=== PATIENT | male | born 1960 | race Caucasian/White ===

== ENCOUNTER 2022-05-04 13:10 | Emergency (ER) | payer SELFPAY ==
[2022-05-04 13:18] VITALS: BP 130/94; PULSE 79; RESP 16; TEMP 36.6; O2SAT 96; BMI 24.3
[2022-05-04 13:36] VITALS: BP 130/94; PULSE 79; RESP 16; TEMP 36.6; O2SAT 96
--- NOTE | 2022-05-04 13:54 | ED_ITS ---
HPI - Skin/Abscess/Foreign Bdy General: Chief complaint: Extremity Injury, Upper Stated complaint: Forearm swelling, both arms Time Seen by Provider: 05/04/22 13:29 Source: patient Mode of arrival: ambulatory Limitations: no limitations History of Present Illness: Patient is a 62-year-old male who presents to ED today with a complaint of skin lesions and swelling to his bilateral forearms. 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 He thinks that may be some of these lesions have gotten infected. He had began noticing small pustule like lesions and when he would scrape them they would then crust and scab. He feels like the tops of his forearms are tight and slightly warm to the touch. States lesions are not pruritic. He denies a history of staph. complaint: rash and lesion Onset (ago): day(s) Tetanus up to date: yes Location: LUE and RUE Severity: moderate Quality: aching Relieving factors: none Exacerbating factors: none Associated symptoms: Reports no associated symptoms; Deny chills, fever(s), nausea or vomiting Treatments prior to arrival: none Review of Systems Const: Denies: fever(s), chills, body aches, fatigue or malaise GI: Denies: abdominal pain, nausea, vomiting or diarrhea Musc: Reports: extremity pain (bilateral forearms) and extremity swelling; Denies: neck pain, back pain, joint pain or joint swelling Skin/Breast: Reports: new lesions Neuro: Denies: headache(s), numbness in extremities, weakness in extremities or sensory changes Physical Exam Const: COMMON NORMALS: no acute distress, patient oriented x3, no limitations, alert and well nourished Extremity: COMMON NORMALS: full ROM, capillary refill normal, no joint enlargement and no clubbing, cyanosis or edema GENERAL: Yes normal exam except as noted RIGHT UPPER EXTREMITY: Yes lower arm LEFT UPPER EXTREMITY: Yes lower arm OTHER: pt has multiple scabbed lesions to dorsal aspects of bilateral forearms; no obvious swelling noted; no erythema/cellulitis; possible slight warmth?; no streaking; there are no drainage from any of the wounds; it is clear patient has been picking at the lesions as several are small unroofed pustules; extremities NV intact; no lesions to hands/wrists/webbings Neuro: COMMON NORMALS: patient oriented x3, moves all extremities, no focal motor deficits and no sensory deficits noted SENSORIUM/ORIENTATION: Yes alert Skin: NARRATIVE SKIN EXAM: see extremity assessment above Course Vital Signs: Vital signs: Vital Signs Temperature 97.9 F 05/04/22 13:36 Pulse Rate 79 05/04/22 13:36 Respiratory Rate 16 05/04/22 13:36 Blood Pressure 130/94 05/04/22 13:36 Pulse Oximetry 96 05/04/22 13:36 Oxygen Delivery Me thod 05/04/22 13:36 MDM - Skin/Abscess/Foreign Bdy Medicial Decision Making Suspicion for staph lesions but could also be some form of contact dermatitis based on history (working on cars/vehicle fluids) but I would have a lower suspicion for this clinically as he has no lesions to hands or anywhere else besides bilateral forearms. Will place on Bactrim and recommend he follow up with PCP next week if lesions are not improving. Discharge Plan Discharge Patient Disposition: Home Clinical Impression: Rash of unknown etiology Condition: Stable Prescriptions: New Bactrim DS 800-160 mg tablet 1 tab PO BID 7 Days Qty: 14 0RF Discharge Orders: Discharge ED (Routine); Ordered 05/04/22 Ordered By: Tracie Silver Referrals: Simon Peña MD [Primary Care Provider] - Coding Level of Care Code ED Nuclear Technologist for Chg Fwd Exam Expanded Problem Focused
== END 2022-05-04 14:09 | disposition home or self-care (01) ==
PROVIDERS: Emergency Provider Physician Assistant; PCP Family Medicine
DX: R21 Rash and other nonspecific skin eruption (principal)
CPT/HCPCS: 99283

== ENCOUNTER 2023-05-31 21:40 | Emergency (ER) | payer SELFPAY ==
[2023-05-31 21:51] VITALS: BP 172/93; PULSE 62; RESP 22; TEMP 36.4; O2SAT 96; BMI 24.0
--- NOTE | 2023-05-31 22:13 | XRR_ITS ---
PROCEDURE INFORMATION: Exam: XR Right Elbow Exam date and time: 05/31/2023 10:33 PM Age: 63 years old Clinical indication: Injury or trauma; Other: Lumber fell on patient; Other: N/a TECHNIQUE: Imaging protocol: Radiologic exam of the right elbow. Views: 3 or more views. COMPARISON: No relevant prior studies available. FINDINGS: Bones/joints: Moderate severe osteoarthritis of the elbow. Soft tissues: Normal. XR/XR elbow RT min 3V* [id number] IMPRESSION: 1. Negative for fracture or dislocation. 2. Moderate severe osteoarthritis of the elbow.
--- NOTE | 2023-05-31 22:19 | ED_ITS ---
HPI - Extremity Problem General: Chief complaint: Extremity Injury, Upper Stated complaint: Rt Elbow Injury Time Seen by Provider: 05/31/23 21:59 History of Present Illness: Patient was moving a wheelbarrow down a ramp when it shifted on him causing him to strain to hold an upright position. When it shifted he felt a pop in his elbow. Since then patient has had pain and discomfort to the right elbow and difficulty with movement. Patient takes no routine medication except over-the- counter ibuprofen for arthritis pain. Patient has had prior surgeries to the elbow for injury and for other conditions. Review of Systems General: Reports: 10 or more systems reviewed and unremarkable except in HPI and below Musc: Reports: extremity pain and joint pain (Right elbow) Physical Exam Const: COMMON NORMALS: alert HENMT: COMMON NORMALS: normocephalic HEAD & SCALP: normocephalic Neck/C-Spine: COMMON NORMALS: full ROM Resp: COMMON NORMALS: normal respiratory effort Cardio: COMMON NORMALS: regular rate RATE: regular rate Back/Pelvis: COMMON NORMALS: thoracic and lumbar spine normal to inspection Extremity: RIGHT UPPER EXTREMITY: Yes elbow joint (Decreased range of motion, tenderness to palpation) Neuro: SENSORIUM/ORIENTATION: Yes alert Skin: COMMON NORMALS: turgor normal GENERAL SKIN EXAM: turgor normal Course Vital Signs: Vital signs: Vital Signs Temperature 97.6 F 05/31/23 21:51 Pulse Rate 62 05/31/23 21:51 Respiratory Rate 22 H 05/31/23 21:51 Blood Pressure 172/93 05/31/23 21:51 Pulse Oximetry 96 05/31/23 21:51 MDM - Extremity (Nontraumatic) Medical Decision Making 63-year-old male patient comes in today for complaints of injury to his right elbow. On exam patient has decreased range of motion due to pain. Distal pulses and sensation are intact. Rotation of the wrist elicits pain. Patient does have noticeable joint enlargement in the hands bilaterally worse on the right than the left. Patient also has scars to the right elbow from prior procedures. Differential diagnosis includes dislocation, sprain, fracture, tendinopathy. X-ray of the elbow noted no fracture or dislocation. Reviewed exam with patient recommended activity as tolerated. Recommended patient follow-up with orthopedist for further evaluation and treatment. Recommend return to the ER for new concerns. XR interpretation done by ED provider, pending radiology final review Discharge Plan Discharge Patient Disposition: Home Clinical Impression: Sprain and strain of unspecified site of elbow and forearm Condition: Stable Prescriptions: New ibuprofen 800 mg tablet 800 mg PO Q6H PRN (Reason: pain) Qty: 40 0RF hydrocodone-acetaminophen 7.5-325 mg tablet 1 tab PO Q8H PRN (Reason: pain (scale score 7-10)) Qty: 9 0RF Discharge Orders: Discharge ED (Routine); Ordered 05/31/23 Ordered By: Huber Shi Discharge Diet: Usual diet Discharge Activity: Increase activity as tolerated Patient Instructions: Elbow Sprain (ED) Activity Restrictions/Additional Instructions: Increase activity as tolerated. Gentle stretching and range of motion exercises. Use ibuprofen as needed for pain and inflammation. Use hydrocodone for severe pain. Use ice or heat for further pain relief. Follow-up with primary care as needed. Follow-up with your graves registration specialist for further evaluation and treatment. Return to ER for new concerns. Coding Level of Care Code ED Head Sampler for Kalen Martin
[2023-05-31] MEDS: HYDROcodone-acetaminophen 10-325 mg Tablet 1 TAB PO (22:26)
--- NOTE | 2023-06-02 08:21 | PC.SOCIAL ---
Ortho Referral Referral message sent to clinic at this time. Clinic to contact patient with appt date/time.
== END 2023-05-31 22:59 | disposition home or self-care (01) ==
PROVIDERS: Emergency Provider Nurse Practitioner Family
DX: S53.401A Unspecified sprain of right elbow, initial encounter (principal); S46.911A Strain of unspecified muscle, fascia and tendon at shoulder and upper arm level, right arm, initial encounter; X50.0XXA Overexertion from strenuous movement or load, initial encounter
CPT/HCPCS: 73080; 99283

== ENCOUNTER 2024-08-26 08:25 | Emergency (ER) | payer MEDICARE, SELFPAY ==
[2024-08-26 08:32] VITALS: BP 167/89; PULSE 75; RESP 20; TEMP 36.6; O2SAT 99
--- NOTE | 2024-08-26 09:06 | ED_ITS ---
HPI - Ear Problem General: Chief complaint: Ear Stated complaint: Ear and Throat pain Time Seen by Provider: 08/26/24 08:38 History of Present Illness: 64-year-old male presents emergency room planing of bilateral ear pain crackling sore throat nonproductive cough. No fever no vomiting no diarrhea. Patient is a half pack-a-day smoker for the last 50+ years. Denies any rash. No abdominal or chest pain. He states his cough is somewhat increased from his typical baseline. Associated symptoms: Denies fever(s) or neck pain Related Data Home Medications Medication Instructions Recorded Confirmed ibuprofen 200 mg tablet (Advil) 200 mg PO Q6H PRN Pain 08/26/24 08/26/24 Previous Rx's Medication Instructions Recorded albuterol sulfate 90 mcg/actuation 2 inh inhalation Q4H PRN shortness 08/26/24 aerosol inhaler of breath or wheezing #18 grams prednisone 20 mg tablet 20 mg PO TID #15 tabs 08/26/24 Allergies Allergy/AdvReac Type Severity Reaction Status Date / Time No Known Allergies Allergy Verified 05/31/23 21:59 Review of Systems Const: Denies: fever(s) or chills Card: Denies: chest pain Resp: Denies: dyspnea GI: Denies: abdominal pain : Denies: dysuria, urinary frequency or urinary urgency Musc: Denies: neck pain or back pain Skin/Breast: Denies: rash Physical Exam Const: COMMON NORMALS: no acute distress GENERAL APPEARANCE: cooperative and comfortable ORIENTATION/CONSCIOUSNESS: Yes awake, Yes oriented to person, Yes oriented to place and Yes oriented to time HENMT: COMMON NORMALS: normocephalic, atraumatic and hearing grossly normal bilaterally HEAD & SCALP: normocephalic and atraumatic Resp: COMMON NORMALS: normal respiratory effort, No retractions, No use of accessory muscles and clear to auscultation bilaterally AUSCULTATION: clear to auscultation bilaterally Cardio: COMMON NORMALS: regular rate, regular rhythm and No murmurs present (Cardio) RATE: regular rate RHYTHM: regular rhythm Extremity: COMMON NORMALS: normal to inspection, capillary refill normal, no clubbing, cyanosis or edema, no calf tenderness and no pedal edema Neuro: SENSORIUM/ORIENTATION: Yes oriented to person, Yes oriented to place and Yes oriented to time Skin: COMMON NORMALS: no rashes or lesions noted GENERAL SKIN EXAM: no ra shes or lesions noted Course Vital Signs: Vital signs: Vital Signs Temperature 97.8 F 08/26/24 08:32 Pulse Rate 75 08/26/24 08:32 Respiratory Rate 20 H 08/26/24 08:32 Blood Pressure 167/89 08/26/24 08:32 Pulse Oximetry 99 08/26/24 08:32 Oxygen Delivery Me thod Room Air 08/26/24 08:32 MDM - Ear Medical Decision Making Viral respiratory infection mild exacerbation COPD started on a steroid taper and albuterol follow-up as needed. No radiology studies performed this visit Discharge Plan Discharge Patient Disposition: Home Clinical Impression: Viral URI with cough, COPD with acute exacerbation Condition: Stable Prescriptions: New prednisone 20 mg tablet 20 mg PO TID Qty: 15 0RF Rx Instructions: 1 p.o. 3 times daily x3 days, 1 p.o. twice daily x2 days, 1 p.o. daily x2 days albuterol sulfate 90 mcg/actuation HFA aerosol inhaler 2 inh INHALATION Q4H PRN (Reason: shortness of breath or wheezing) Qty: 18 0RF No Action ibuprofen [Advil] 200 mg Tablet 200 mg PO Q6H PRN (Reason: Pain) Discharge Orders: Discharge ED (Routine); Ordered 08/26/24 Ordered By: lKaus Romero Patient Instructions: Opioid Safety, Pain Management Activity Restrictions/Additional Instructions: Thank you for choosing [facility] for your healthcare needs today. It is very important that you follow up as instructed or that you return to the Emergency Department should you have concerns or if your condition changes or worsens in any way. You were seen in the emergency room with complaints of upper respiratory symptoms. Ear exam did not show any definitive findings. Based on your history of your symptoms you likely have a viral upper respiratory infection. This is probably exacerbated by underlying COPD from years of smoking. Recommend albuterol inhaler along with a steroid taper that you can begin today follow-up with your primary care doctor if not improving Coding Level of Care Code ED Digital Program Manager for Kalen Martin
[2024-08-26 10:12] VITALS: BP 147/83; PULSE 58; O2SAT 99
== END 2024-08-26 10:13 | disposition home or self-care (01) ==
PROVIDERS: Emergency Provider Family Medicine
DX: J06.9 Acute upper respiratory infection, unspecified (principal); J44.1 Chronic obstructive pulmonary disease with (acute) exacerbation
CPT/HCPCS: 99283

== ENCOUNTER 2024-12-29 11:59 | Observation (INO) | payer MEDICARE, SELFPAY ==
[2024-12-29] VITALS (18 sets, daily range): BP systolic 100–141; BP diastolic 59–98; PULSE 50–80; RESP 10–18; TEMP 36.4–36.5; O2SAT 94–100
--- NOTE | 2024-12-29 12:11 | ECG_ITS ---
[facility]: 2024-12-29 Pat Name: Tonio Fallon Department: Room: Gender: Male Senior Information Security Architect: : 1960 Requested By: Ayana Houser Order Number: [id number] Sahil MD: Edda Boothe M.D. Measurements Intervals Jackson Rate: 53 P: 148 VA: 146 QRS: 145 QRSD: 104 T: 139 QT: 476 QTc: 450 Interpretive Statements ECTOPIC ATRIAL BRADYCARDIA RIGHT AXIS DEVIATION [QRS AXIS > 100] POSSIBLE LEFT VENTRICULAR HYPERTROPHY [VOLTAGE CRITERIA PLUS LAE OR QRS WIDENING] Compared to ECG 08/09/2018 18:34:52 Bradycardia, nonsinus now present Right-axis deviation now present Sinus rhythm no longer present Electronically Signed On 12-29-2024 21:20:27 CDT by Edda Boothe M.D. [email or web address]
--- NOTE | 2024-12-29 12:19 | XR_ITS ---
WS: [id number] Portable AP upright chest, 12/29/2024 Clinical Data: Weakness Comparison: Portable chest, 11/10/2017 Findings: No nodules, masses or effusions are seen. The heart is normal. The pulmonary vascularity is not increased. No pneumonia or pneumothorax is seen. The aortic arch and descending thoracic aorta shows tortuosity. There are monitor leads on the chest wall. XR/XR chest 1V portable [id number] Impression: Atherosclerosis.
--- NOTE | 2024-12-29 12:49 | CT_ITS ---
WS: [id number] CT HEAD NONCONTRAST HISTORY: Encephalopathy, altered mental status TECHNIQUE: Contiguous axial imaging performed through the brain. Bone and soft tissue windows. Sagittal and coronal reformats reviewed. All CT scans at [facility] use at least one of these dose optimization techniques: automated exposure control; mA and/or kV adjustment per patient size (includes targeted exams where dose is matched to clinical indication); or iterative reconstruction. DLP: 1008.38 mGy.cm COMPARISON: 08/09/2018 No acute intracranial hemorrhage, midline shift or mass effect. Mild atrophy and mild small vessel ischemic changes. There is been mild progression of low-attenuation periventricular white matter disease. No infarct. Ventricles: Normal size with no hydrocephalus. No inferior displacement the cerebellar tonsils. Paranasal sinuses: Moderate mucoperiosteal thickening throughout the ethmoid air cells. Small amount of mucoperiosteal thickening in the frontal and sphenoid sinuses. Mastoid air cells: Well pneumatized. Calvarium and scalp: Skull is intact with no soft tissue edema or swelling. CT/CT head wo con* [id number] IMPRESSION: 1. No acute intracranial hemorrhage or edema. 2. Mild progression of small vessel ischemic changes since 08/09/2018. No larg e territory infarct. 3. Ethmoid air cell disease.
--- NOTE | 2024-12-29 12:49 | W.ED.SYNCOPE ---
HPI - Syncope General: Chief Complaint: Syncope Stated Complaint: AMS, Syncope Time Seen by Provider: 12/29/24 12:08 History of Present Illness: 64-year-old man who currently takes no prescription medications who presents emergency room after having a near syncopal episode. Family states he was not feeling very well this morning. He tells me he was feeling okay. He says he got lightheaded and he does not think he actually passed out. Family says they were concerned because his pupils were pinpoint and he almost passed out. They are concerned that he takes handfuls of ibuprofen at a time. He denies any chest pain. No abdominal pain. No nausea or vomiting. EMS does report that it was reported he took a marijuana gummy and some alcohol last night. Related Data Home Medications ?Medication ?Instructions ?Recorded ?Confirmed ibuprofen 200 mg tablet (Advil) 200 mg PO Q6H PRN Pain 08/26/24 12/29/24 Previous Rx's ?Medication ?Instructions ?Recorded albuterol sulfate 90 mcg/actuation 2 inh inhalation Q4H PRN shortness 08/26/24 aerosol inhaler of breath or wheezing #18 grams Allergies Allergy/AdvReac Type Severity Reaction Status Date / Time No Known Allergies Allergy Verified 05/31/23 21:59 Review of Systems Narrative: Constitutional symptoms: Negative except as documented in HPI. Skin symptoms: Negative except as documented in HPI. Eye symptoms: Negative except as documented in HPI. ENMT symptoms: Negative except as documented in HPI. Respiratory symptoms: Negative except as documented in HPI. Cardiovascular symptoms: Negative except as documented in HPI. Gastrointestinal symptoms: Negative except as documented in HPI. Genitourinary symptoms: Negative except as documented in HPI. Musculoskeletal symptoms: Negative except as documented in HPI. Neurologic symptoms: Negative except as documented in HPI. Psychiatric symptoms: Negative except as documented in HPI. Endocrine symptoms: Negative except as documented in HPI. Physical Exam Narrative: EXAM NARRATIVE: General: Alert, no acute distress. Skin: Warm, dry. Head: Normocephalic, atraumatic. Neck: Supple, trachea midline. Eye: Extraocular movements are intact. Ears, nose, mouth and throat: mucosa moist. Poor dentition Cardiovascular: Regular, bradycardic, normal peripheral perfusion. Respiratory: Lungs are clear to auscultation, respirations are non-labored, breath sounds are equal, Symmetrical chest wall expansion. Gastrointestinal: Soft, Nontender, Non distended Musculoskeletal: Normal ROM, no deformity. Neurological: Alert and oriented, No focal neurological deficit observed. Psychiatric: Cooperative, appropriate mood & affect. Course Vital Signs: Vital signs: Vital Signs Temperature 97.6 F 12/29/24 12:02 Pulse Rate 76 12/29/24 15:15 Respiratory Rate 12 12/29/24 15:06 Blood Pressure 127/85 12/29/24 15:11 Pulse Oximetry 97 12/29/24 15:15 Oxygen Delivery Me thod Room Air 12/29/24 15:15 MDM - Syncope Medical Decision Making Medical decision making: Differential diagnosis including but not limited to and based on the above HPI, review of systems and physical exam in this patient with syncope: Vasovagal, orthostatics hypotension, cardiac dysrhythmia, myocardial infarction, infection and hypotension, Orders placed to evaluate differential diagnosis based on the above differential, HPI and physical exam EKG: Time 1215. Rate 53. Sinus bradycardia, No ST-T changes, no ectopy, normal VT & QRS intervals, This was reviewed and interpreted by myself the ER physician at 1218 Lab Review: Laboratory results were reviewed and interpreted by myself the emergency room physician. No leukocytosis. No anemia. No renal failure. RSV COVID and flu are negative. Serial troponins are negative. Urinalysis and urine drug screen are still pending. Chest x-ray: No acute process. No infiltrate. No pneumothorax. This was reviewed and interpreted by myself the emergency room physician. I also reviewed the radiology report. CT head: No acute intracranial process. no intracranial hemorrhage, no evidence of infarct. no evidence of acute fracture.This was reviewed and interpreted by myself the ER physician. I reviewed the patient's medical record. Reexamination: Patient remained slightly hypertensive and bradycardic and symptomatic so I gave a dose of atropine and patient's heart rate came back up and his blood pressure bounced up into the 120s. Consultation: Spoke with Dr. Boothe who who feels that with the patient having symptomatic bradycardia near syncope he needs at least observed overnight on cardiac monitoring. Consultation: I spoke with Dr. Schwab who is on-call for the hospital service who agrees to admission. Assessment and plan: Symptomatic bradycardia Hypertension - Atropine given with improvement in blood pressure and heart rate. ? I discussed the patient with the hospitalist on-call who is admitting the patient. - Discussed findings and plan with patient. Answered any questions. - All laboratory values were reviewed and interpreted personally by myself, the ER physician - All imaging was reviewed and interpreted personally by myself, the ER physician. - Evaluation and treatment of this problem were appropriate in the emergency setting Lab Data 12/29/24 13:10 12/29/24 13:10 Radiology Impressions Chest X-Ray 12/29/24 12:19 Impression: Atherosclerosis. Head CT 12/29/24 12:49 IMPRESSION: 1. No acute intracranial hemorrhage or edema. 2. Mild progression of small vessel ischemic changes since 08/09/2018. No large territory infarct. 3. Ethmoid air cell disease. Laboratory Results WBC 5.18 10^3/uL (3.29-11.43) 12/29/24 13:10 RBC 4.52 10^6/uL (3.85-5.65) 12/29/24 13:10 Hgb 13.70 g/dL (11.27-16.99) 12/29/24 13:10 Hct 41.2 % (37-53) 12/29/24 13:10 MCV 91.2 fl (82-101) 12/29/24 13:10 MCH 30.3 pg (27-33) 12/29/24 13:10 MCHC 33.3 g/dL (30-55) 12/29/24 13:10 RDW 13.4 % (12.1-15.1) 12/29/24 13:10 Plt Count 122 10^3/cmm (157-399) L 12/29/24 13:10 MPV 12.4 fL (7.4-10.4) H 12/29/24 13:10 Neut % (Auto) 67.5 % 12/29/24 13:10 Lymph % (Auto) 22.8 % 12/29/24 13:10 [place] % (Auto) 4.4 % 12/29/24 13:10 Eos % (Auto) 4.1 % 12/29/24 13:10 Baso % (Auto) 1.0 % 12/29/24 13:10 Neut # (Auto) 3.50 10^3/uL (1.8-7.7) 12/29/24 13:10 Lymph # (Auto) 1.2 10^3/uL (0.8-4.8) 12/29/24 13:10 [place] # (Auto) 0.2 10^3/uL (0.2-0.9) 12/29/24 13:10 Eos # (Auto) 0.2 10^3/uL (0.0-0.8) 12/29/24 13:10 Baso # (Auto) 0.1 10^3/uL (0.0-0.1) 12/29/24 13:10 Nucleated RBC % (auto) 0 % 12/29/24 13:10 Nucleated RBCs # 0.0 /100WBC 12/29/24 13:10 Sodium 142 mmol/L (136-145) 12/29/24 13:10 Potassium 3.7 mmol/L (3.5-5.1) 12/29/24 13:10 Chloride 108 mmol/L (98-107) H 12/29/24 13:10 Carbon Dioxide 22 mmol/L (22-29) 12/29/24 13:10 Anion Gap 15.7 (5-19) 12/29/24 13:10 BUN 13 mg/dL (8-23) 12/29/24 13:10 Creatinine 0.7 mg/dL (0.7-1.2) 12/29/24 13:10 GFR Calculation 113.2 mL/min (90-130) 12/29/24 13:10 Glucose 190 mg/dL (65-115) H 12/29/24 13:10 Calculated Osmolality 299 mOsm/kg (285-295) H 12/29/24 13:10 Lactic Acid 1.4 mmol/L (0.5-2.2) 12/29/24 13:10 Calcium 8.7 mg/dL (8.5-10.5) 12/29/24 13:10 Total Bilirubin 0.9 mg/dL (0.15-1.2) 12/29/24 13:10 AST 36 U/L (0-40) 12/29/24 13:10 ALT 33 U/L (0-41) 12/29/24 13:10 Alkaline Phosphatase 115 U/L (40-130) 12/29/24 13:10 Troponin T Baseline 7 ng/L (0-15) 12/29/24 13:10 Troponin T 120 Minute 6.28 ng/L (0-15) 12/29/24 15:05 Delta Troponin T -0.72 ABS# (0-10) L 12/29/24 15:05 C-Reactive Protein 3.0 mg/L (0.0-4.9) 12/29/24 13:10 NT-Pro-B Natriuret Pep 50 pg/mL (0-125) 12/29/24 13:10 Total Protein 6.6 g/dL (6.6-8.7) 12/29/24 13:10 Albumin 4.0 g/dL (3.5-5.2) 12/29/24 13:10 Globulin 2.6 g/dL (1.3-4.6) 12/29/24 13:10 Acetaminophen < 5.0 ug/mL (10-30) L 12/29/24 13:10 Ethyl Alcohol < 10 mg/dL (0-10) 12/29/24 13:10 Influenza A (PCR) Negative (Negative) 12/29/24 13:00 Influenza Type B (PCR) Negative (Negative) 12/29/24 13:00 RSV (PCR) Negative (Negative) 12/29/24 13:00 SARS-CoV-2 (PCR) Negative (Negative) 12/29/24 13:00 All radiology interpretation(s) finalized by discharge Discharge Plan Discharge Patient Disposition: Admitted As Inpatient Clinical Impression: Symptomatic bradycardia Condition: Stable Coding Level of Care Code ED Electro Mechanical Technologist for Kalen Martin
[2024-12-29 13:41] LABS: Lactic Sepsis W/Reflex 1.4 mmol/L (0.5-2.2)
[2024-12-29 13:48] LABS: Basophils # 0.1 10^3/uL (0.0-0.1); Eosinophils # 0.2 10^3/uL (0.0-0.8); Eosinophils % 4.1 %; Hematocrit 41.2 % (37-53); Lymphocytes # 1.2 10^3/uL (0.8-4.8); Lymphocytes % 22.8 %; Mean Corpuscular HGB Conc 33.3 g/dL (30-55); Mean Corpuscular Hemoglobin 30.3 pg (27-33); Mean Corpuscular Volume 91.2 fl (82-101); Mean Platelet Volume 12.4 fL (7.4-10.4); Monocytes # 0.2 10^3/uL (0.2-0.9); Monocytes % 4.4 %; Neutrophils % 67.5 %; Nucleated Red Blood Cells % 0 %; Platelet Count 122 10^3/cmm (157-399); Red Blood Count 4.52 10^6/uL (3.85-5.65); Red Cell Distribution Width 13.4 % (12.1-15.1); White Blood Count 5.18 10^3/uL (3.29-11.43)
[2024-12-29 13:51] LABS: Troponin(5th) Baseline 7 ng/L (0-15)
[2024-12-29 13:54] LABS: Alanine Aminotransferase 33 U/L (0-41); Alkaline Phosphatase 115 U/L (40-130); Anion Gap 15.7 (5-19); Aspartate Amino Transferase 36 U/L (0-40); Blood Urea Nitrogen 13 mg/dL (8-23); Calcium 8.7 mg/dL (8.5-10.5); Carbon Dioxide 22 mmol/L (22-29); Chloride 108 mmol/L (98-107); Creatinine Clr Calc Pharmacy 94.2151; Globulin 2.6 g/dL (1.3-4.6); Glomerular Filtration Rate 113.2 mL/min (90-130); Glucose 190 mg/dL (65-115); Osmolality Calculated 299 mOsm/kg (285-295); Potassium 3.7 mmol/L (3.5-5.1); Sodium 142 mmol/L (136-145); Total Bilirubin 0.9 mg/dL (0.15-1.2); Total Protein 6.6 g/dL (6.6-8.7)
[2024-12-29 13:56] LABS: Acetaminophen < 5.0 ug/mL (10-30); Alcohol Level < 10 mg/dL (0-10)
[2024-12-29 13:58] LABS: Influenza A NEGATIVE (Negative); Influenza B NEGATIVE (Negative); Respiratory Syncytial Virus Ce NEGATIVE (Negative); SARS-CoV-2 PCR NEGATIVE (Negative)
[2024-12-29 14:01] LABS: NT Pro B Type Natriuretic Pept 50 pg/mL (0-125)
[2024-12-29] MEDS: sodium chloride 0.9% 1,000 ML 999 ML IV (14:09)
--- NOTE | 2024-12-29 14:13 | ECG_ITS ---
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 Measurements Intervals [place] Rate: 54 P: 152 NH: 133 QRS: 147 QRSD: 110 T: 150 QT: 476 QTc: 452 Interpretive Statements SINUS BRADYCARDIA LEFT POSTERIOR FASCICULAR BLOCK [QRS AXIS > 109, INFERIOR Q] MODERATE VOLTAGE CRITERIA FOR LVH, CONSIDER NORMAL VARIANT [MEETS CRITERIA IN ONE OF: R(aVL), S(V1), R(V5), R(V5/V6)+S(V1)] nonspecific ST-T changes in the high lateral leads POSSIBLE INFERIOR MYOCARDIAL INFARCTION , PROBABLY OLD [30 ms Q WAVE IN II/aVF] Compared to ECG 12/29/2024 12:15:22 Left posterior fascicular block now present Myocardial infarct finding now present Bradycardia, nonsinus no longer present Right-axis deviation no longer present Electronically Signed On 12-29-2024 21:43:26 CDT by Edda Boothe M.D. [id number] [id number]
--- NOTE | 2024-12-29 14:56 | PC.NURSE ---
attempted to get pt's urine sample, pt states no at this time. will try again.
--- NOTE | 2024-12-29 14:57 | PC.NURSE ---
PT refusing blood pressure to be taken states it hurts my arm.
[2024-12-29] MEDS: atropine 0.1 mg/mL Syr 10 mL 1 MG IVP (15:04)
[2024-12-29 15:29] LABS: Troponin 5 2HR 6.28 ng/L (0-15)
[2024-12-29 15:32] LABS: Troponin 5 2HR Delta -0.72 ABS# (0-10)
--- NOTE | 2024-12-29 17:16 | PC.NURSE ---
this nurse has asked pt multiple times for a urine sample, pt continues to refuse. Tech has asked for a urine sample x2 and pt has refused.
--- NOTE | 2024-12-29 17:18 | PC.NURSE ---
attempted to call report to CSU, was told nurse Kelly will call back for report. [phone].
--- NOTE | 2024-12-29 17:48 | PC.NURSE ---
pt report called to Polo RN CSU at [phone].
--- NOTE | 2024-12-29 18:17 | USCV_ITS ---
Tonio Fallon Age: 64 Gender: M : 1960 Exam Date: 12/29/2024 22:21 Ordering Phys: Hayley Schwab MD Technologist: TED Exam Location: [facility] – [place] Indication: syncope, bradycardia BP: 141 / 98 HR: 53 Rhythm: Sinus bradycardia Technical Quality: Adequate MEASUREMENTS (Male / Female) Normal Values 2D ECHO LV Diastolic Diameter PLAX 4.0 cm 4.2 - 5.9 / 3.9 - 5.3 cm IVS Diastolic Thickness 1.5 cm 0.6 - 1.0 / 0.6 - 0.9 cm IVS Systolic Thickness 1.8 cm LVPW Diastolic Thickness 1.4 cm 0.6 - 1.0 / 0.6 - 0.9 cm LVPW Systolic Thickness 1.9 cm LVOT Diameter 2.0 cm LV Ejection Fraction 2D Teich 55.7 % LV Ejection Fraction MOD 4C 58.1 % LV Ejection Fraction MOD 2C 55.2 % LV Ejection Fraction 2C AL 58.1 % LA Diameter 2.6 cm Aorta at Sinotubular Diameter 3.1 cm IVC Diameter 2.3 cm M-MODE LA Ao Ratio MM 0.9 AV Cusp Separation MM 1.7 cm DOPPLER AV Peak Velocity 139.0 cm/s LVOT Peak Velocity 81.0 cm/s AV Area Cont Eq vti 2.3 cm squared AV Area Cont Eq pk 1.8 cm squared MV Peak Velocity 113.0 cm/s MV Area PHT 3.0 cm squared Mitral E to A Ratio 0.8 TV Peak Velocity 241.3 cm/s TR Peak Velocity 265.0 cm/s TR Peak Gradient 28.1 mmHg TV Peak E Velocity 39.0 cm/s PV Peak Velocity 75.0 cm/s FINDINGS Left Ventricle Normal left ventricular size and systolic function, EF 56%. No regional wall motion abnormalities. Mild left ventricular hypertrophy. Grade I/IV diastolic dysfunction (abnormal relaxation filling pattern), normal to mildly elevated filling pressures. Right Ventricle The right ventricle is normal in size and function. Right Atrium The right atrium is normal in size. Left Atrium The left atrium is normal in size. Mitral Valve Trace mitral valve regurgitation. Aortic Valve Mild aortic valve regurgitation. Tricuspid Valve [id number] tricuspid valve regurgitation. Estimated pulmonary artery peak systolic pressure 31 mmHg Pulmonic Valve No gross abnormalities noted Pericardium Normal pericardium without effusion. Aorta Normal ascending aorta dimension. IVC Normal inferior vena cava. CONCLUSIONS Normal left ventricular size and systolic function, EF 56%. No regional wall motion abnormalities. Mild left ventricular hypertrophy. Grade I/IV diastolic dysfunction (abnormal relaxation filling pattern), normal to mildly elevated filling pressures. Trace mitral valve regurgitation. Mild aortic valve regurgitation. [id number]-[id number] tricuspid valve regurgitation. Estimated pulmonary artery peak systolic pressure 31 mmHg. There is no pericardial effusion. There are no intracardiac masses. Compared to the study from 11/10/2017, there may not be a significant change Dr Edda Boothe MD FACC (Electronically Signed) Final Date: 30 December 2024 22:41 S
--- NOTE | 2024-12-29 18:18 | ECG_ITS ---
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 Measurements Intervals [place] Rate: 68 P: 53 GA: 150 QRS: 38 QRSD: 96 T: 46 QT: 412 QTc: 440 Interpretive Statements SINUS RHYTHM Compared to ECG 12/29/2024 14:13:39 Sinus bradycardia no longer present Left posterior fascicular block no longer present Myocardial infarct finding no longer present Electronically Signed On 12-29-2024 21:39:50 CDT by Edda Boothe M.D. [id number] [id number]
--- NOTE | 2024-12-29 18:24 | P.HP_ITS ---
Providers/Chief Complaint 2 Admitting Physician: Hayley Shcwab MD Chief Complaint: AMS, Syncope History of Present Illness Tonio Fallon is a 64 year old male without known medical comorbidities, history of daily alcohol use, use of THC Gummies, he is brought to the emergency room today by his family due to complaints of feeling dizzy. Patient reports that he was in his usual state of health until this morning. He was at rest and suddenly started to feel dizzy as if being carsick . [place] like he was dizzy. Did not pass out or lose consciousness at any time. Upon ER arrival he was noted to be bradycardic with heart rate in the 40s. He received atropine following which heart rate improved between 60-70. He was more awake and alert after his heart rate was improved per ER physician. CT of the head was without any acute intracranial hemorrhage or edema. There was mild progression of small vessel ischemic changes compared to 2018. There was no large territory infarct encountered. Patient denies being sick recently no history of fever chills nausea vomiting diarrhea. No known history of cardiac abnormalities. His last drink was 2 nights ago. Alcohol level today is less than 10. Urine drug screen is not available at this time of assessment. A straight cath has been ordered to obtain urine for drug screen. Review of Systems 2 General: Reports: 10 or more systems reviewed and unremarkable except in HPI and below Const: Denies: fever(s), chills or body aches Eyes: Denies: change in vision, blurry vision or photophobia ENMT: Reports: hoarseness; Denies: throat pain, enlarged tonsils, odynophagia or nasal congestion Card: Denies: chest pain, palpitations, irregular heart rhythm, edema, swelling of feet/ankles, lightheadedness, pre-syncope, dyspnea on exertion or orthopnea Resp: Denies: dyspnea, productive cough, non-productive cough, wheezing, stridor, pain on inspiration, change in phlegm color, hemoptysis or chest congestion GI: Denies: abdominal pain, nausea, vomiting, hematemesis, coffee ground emesis, dysphagia, heartburn, diarrhea, constipation, GI cramping, change in stool character, hematochezia or melena : Denies: flank pain, dysuria, urinary frequency, urinary urgency, urinary hesitancy or hematuria Musc: Denies: neck pain, back pain, extremity pain, joint swelling, joint warmth or deformity Neuro: Denies: headache(s), numbness in extremities, weakness in extremities, sensory changes, difficulty walking, frequent falls, dizziness, vertigo, behavioral changes, Slurred speech present or seizure-like activity Psych: Denies: anxiety, depression, suicidal ideation or homicidal ideation Endo: Denies: polyuria, polydipsia, tired all the time, cold intolerance or hot flashes Navi/Lymph: Denies: easy bruising or easy bleeding Medications/Allergies Home Medications ?Medication ?Instructions ?Recorded ?Confirmed ?Last Taken ?Type albuterol sulfate 90 mcg/actuation 2 inh inhalation Q4 H PRN shortness 08/26/24 12/29/24 Unknown Rx aerosol inhaler of breath or wheezing #18 gr ams ibuprofen 200 mg tablet (Advil) 200 mg PO Q6H PRN Pain 08/26/24 12/29/24 Unknown History Allergies Allergy/AdvReac Type Severity Reaction Status Date / Time No Known Allergies Allergy Verified 05/31/23 21:59 Vitals/I&O/Wt Last Vital Signs Temp 97.6 F 12/29/24 12:02 Pulse 60 12/29/24 18:19 Resp 14 12/29/24 17:00 BP 128/84 12/29/24 18:19 Pulse Ox 98 12/29/24 18:19 O2 Del Method Room Air 12/29/24 17:00 12/29/24 12/29/24 12/29/24 06:59 14:59 22:59 Intake Total 1000 / 1000 Balance 1000 / 1000 Weight last 48 hrs Weight 74.843 kg Physical Exam 2 Narrative: General: No acute distress, AO x3 HEENT: PERRLA, pupils bilaterally equal and reactive, pallors not present Chest: Normal vesicular breath sounds, no added sounds, equal good air entry bilaterally CVS: S1-S2 regular, no murmurs, no tachycardia, no gallops, no rubs Abdomen: Soft, nontender, no organomegaly, bowel sounds present Neuro: No focal deficits, no facial deformity, AO x3, power 5/5 in all limbs Data 12/29/24 13:10 12/29/24 13:10 Micro: Microbiology 12/29/24 13:05 Blood Culture - Preliminary Blood SPECIMEN COLLECTED 12/29/24 13:10 Blood Culture - Preliminary Blood SPECIMEN COLLECTED Other data: Radiology Impressions Chest X-Ray 12/29/24 12:19 Impression: Atherosclerosis. Head CT 12/29/24 12:49 IMPRESSION: 1. No acute intracranial hemorrhage or edema. 2. Mild progression of small vessel ischemic changes since 08/09/2018. No large territory infarct. 3. Ethmoid air cell disease. Laboratory Results WBC 5.18 10^3/uL (3.29-11.43) 12/29/24 13:10 RBC 4.52 10^6/uL (3.85-5.65) 12/29/24 13:10 Hgb 13.70 g/dL (11.27-16.99) 12/29/24 13:10 Hct 41.2 % (37-53) 12/29/24 13:10 MCV 91.2 fl (82-101) 12/29/24 13:10 MCH 30.3 pg (27-33) 12/29/24 13:10 MCHC 33.3 g/dL (30-55) 12/29/24 13:10 RDW 13.4 % (12.1-15.1) 12/29/24 13:10 Plt Count 122 10^3/cmm (157-399) L 12/29/24 13:10 MPV 12.4 fL (7.4-10.4) H 12/29/24 13:10 Neut % (Auto) 67.5 % 12/29/24 13:10 Lymph % (Auto) 22.8 % 12/29/24 13:10 [place] % (Auto) 4.4 % 12/29/24 13:10 Eos % (Auto) 4.1 % 12/29/24 13:10 Baso % (Auto) 1.0 % 12/29/24 13:10 Neut # (Auto) 3.50 10^3/uL (1.8-7.7) 12/29/24 13:10 Lymph # (Auto) 1.2 10^3/uL (0.8-4.8) 12/29/24 13:10 [place]oshone # (Auto) 0.2 10^3/uL (0.2-0.9) 12/29/24 13:10 Eos # (Auto) 0.2 10^3/uL (0.0-0.8) 12/29/24 13:10 Baso # (Auto) 0.1 10^3/uL (0.0-0.1) 12/29/24 13:10 Nucleated RBC % (auto) 0 % 12/29/24 13:10 Nucleated RBCs # 0.0 /100WBC 12/29/24 13:10 Sodium 142 mmol/L (136-145) 12/29/24 13:10 Potassium 3.7 mmol/L (3.5-5.1) 12/29/24 13:10 Chloride 108 mmol/L (98-107) H 12/29/24 13:10 Carbon Dioxide 22 mmol/L (22-29) 12/29/24 13:10 Anion Gap 15.7 (5-19) 12/29/24 13:10 BUN 13 mg/dL (8-23) 12/29/24 13:10 Creatinine 0.7 mg/dL (0.7-1.2) 12/29/24 13:10 GFR Calculation 113.2 mL/min (90-130) 12/29/24 13:10 Glucose 190 mg/dL (65-115) H 12/29/24 13:10 Calculated Osmolality 299 mOsm/kg (285-295) H 12/29/24 13:10 Lactic Acid 1.4 mmol/L (0.5-2.2) 12/29/24 13:10 Calcium 8.7 mg/dL (8.5-10.5) 12/29/24 13:10 Total Bilirubin 0.9 mg/dL (0.15-1.2) 12/29/24 13:10 AST 36 U/L (0-40) 12/29/24 13:10 ALT 33 U/L (0-41) 12/29/24 13:10 Alkaline Phosphatase 115 U/L (40-130) 12/29/24 13:10 Troponin T Baseline 7 ng/L (0-15) 12/29/24 13:10 Troponin T 120 Minute 6.28 ng/L (0-15) 12/29/24 15:05 Delta Troponin T -0.72 ABS# (0-10) L 12/29/24 15:05 C-Reactive Protein 3.0 mg/L (0.0-4.9) 12/29/24 13:10 NT-Pro-B Natriuret Pep 50 pg/mL (0-125) 12/29/24 13:10 Total Protein 6.6 g/dL (6.6-8.7) 12/29/24 13:10 Albumin 4.0 g/dL (3.5-5.2) 12/29/24 13:10 Globulin 2.6 g/dL (1.3-4.6) 12/29/24 13:10 Acetaminophen < 5.0 ug/mL (10-30) L 12/29/24 13:10 Ethyl Alcohol < 10 mg/dL (0-10) 12/29/24 13:10 Influenza A (PCR) Negative (Negative) 12/29/24 13:00 Influenza Type B (PCR) Negative (Negative) 12/29/24 13:00 RSV (PCR) Negative (Negative) 12/29/24 13:00 SARS-CoV-2 (PCR) Negative (Negative) 12/29/24 13:00 A&P Assessment and plan (1) Symptomatic bradycardia: (2) Syncope: Plan 64-year-old male without known cardiac comorbidities presenting to the hospital today with chief complaints of dizziness, possibly presyncope related to sinus bradycardia. EKG showing sinus bradycardia Patient needed to be administered atropine which brought his heart rate between 60-70. Per discussion patient was more alert and awake after his heart rate improved. Will monitor on telemetry overnight, admit to CSU. Alternate differential of neurogenic syncope. CT head without any acute stroke Check carotid Doppler and echocardiogram Troponin series today with baseline troponin at 7, unremarkable delta at 2 hours. Pending 6-hour trend Reports a history of daily alcohol drinking, add thiamine 100 mg p.o. daily. Monitor for signs of alcohol withdrawal. Currently alcohol level is less than 10 therefore less likely his symptoms are related to acute intoxication. Check TSH and ammonia levels. PDMP PDMP Reviewed: Not Reviewed Attestations 2 Medical Necessity Statement*: Less than 2 midnight stay is currently anticipated Coding Level of Care Code Acute Code for g Fwd Diagnoses Symptomatic bradycardia R00.1 Syncope R55
[2024-12-29 19:43] LABS: D Dimer 0.29 ug/mLFEU (0-0.59)
[2024-12-29 19:45] LABS: Troponin 5 6HR 6.21 ng/L (0-15); Troponin 5 6HR Delta -0.79 ng/L (0-12)
[2024-12-29 19:46] LABS: Ammonia 24 umol/L (16-60)
[2024-12-29 20:16] LABS: Add Urine Culture? No; Bilirubin Urine Neg (Negative); Blood Urine Neg (Negative); Glucose Urine UA Norm (Normal); Hyaline Casts Urine 1.65 /lpf; Ketones Urine Negative (Negative); Leukocyte Esterase Urine Negative (Negative); Nitrate Urine Negative (Negative); Protein Urine Neg (Negative); RBC Urine 0-4 /hpf (0-2); Specific Gravity, Urine 1.024 (1.005-1.030); Squamous Epithelial Cell Urine 0-4 /hpf (0-5); Urine Appearance Clear (CLEAR); Urine Color Yellow (Yellow); WBC Urine 0-4 /hpf (0-5); pH Urine 6 (5-7)
[2024-12-29 20:18] LABS: Amphetamines Screen Urine Negative (Negative); Barbiturates Screen Urine Negative (Negative); Benzodiazepines Screen Urine Negative (Negative); Cocaine Screen Urine Negative (Negative); Opiate Screen Urine Negative (Negative); PCP Screen Urine Negative (Negative); THC Screen Urine Positive (Negative)
[2024-12-29 20:24] LABS: Thyroid Stimulating Hormone 0.22 uIU/mL (0.27-4.20)
[2024-12-30] VITALS (10 sets, daily range): BP systolic 95–147; BP diastolic 52–80; PULSE 50–65; RESP 10–18; TEMP 36.6–36.9; O2SAT 94–98
--- NOTE | 2024-12-30 05:51 | PC.NURSE ---
Patient urinated 500 ml at 2000, no badder scan needed. Bladder scan performed at 0545 and showed 297ml in bladder, patient proceeded to urinate 375ml on his own in urinal. Urine was dark tea color.
[2024-12-30 05:54] LABS: Basophils # 0.1 10^3/uL (0.0-0.1); Eosinophils # 0.3 10^3/uL (0.0-0.8); Eosinophils % 6.2 %; Hematocrit 37.8 % (37-53); Lymphocytes # 1.8 10^3/uL (0.8-4.8); Lymphocytes % 35.6 %; Mean Corpuscular HGB Conc 33.1 g/dL (30-55); Mean Corpuscular Hemoglobin 30.6 pg (27-33); Mean Corpuscular Volume 92.4 fl (82-101); Mean Platelet Volume 12.7 fL (7.4-10.4); Monocytes # 0.3 10^3/uL (0.2-0.9); Monocytes % 6.2 %; Neutrophils # 2.61 10^3/uL (1.8-7.7); Neutrophils % 50.8 %; Nucleated Red Blood Cells % 0 %; Platelet Count 122 10^3/cmm (157-399); Red Blood Count 4.09 10^6/uL (3.85-5.65); Red Cell Distribution Width 13.8 % (12.1-15.1); White Blood Count 5.14 10^3/uL (3.29-11.43)
--- NOTE | 2024-12-30 06:00 | USR_ITS ---
PROCEDURE INFORMATION: Exam: US Duplex Bilateral Extracranial Arteries; Complete; Carotid Arteries Exam date and time: 12/30/2024 4:49 PM Age: 64 years old Clinical indication: Dizziness; Additional info: Syncope TECHNIQUE: Imaging protocol: Real-time duplex ultrasound scan of the bilateral extracranial arteries combining moulton scale, color Doppler and spectral waveform analysis with image documentation. Complete exam. Exam focused on the carotid arteries. COMPARISON: CT head wo con* [id number] 12/29/2024 1:50 PM FINDINGS: Right common carotid artery: No occlusion or stenosis. Waveforms are normal. Atherosclerotic plaquing of the right carotid bulb. Right internal carotid artery: No occlusion or stenosis. Waveforms are normal. Right ICA/CCA ratio: Within normal limits. Right external carotid artery: No stenosis in the origin. Right vertebral artery: Unremarkable. Antegrade flow. Left common carotid artery: No occlusion or stenosis. Waveforms are normal. Left internal carotid artery: No occlusion or stenosis. Waveforms are normal. Left ICA/CCA ratio: Within normal limits. Left external carotid artery: Elevated velocity measuring 134.5 cm/s consistent with 50-69% stenosis hemodynamically. Left vertebral artery: Unremarkable. Antegrade flow. US/CV carotid duplex BI* [id number] IMPRESSION: 1. No significant stenosis hemodynamically in the common carotid, internal carotid, or subclavian arteries bilaterally. 2. Atherosclerotic plaquing at the carotid bulbs bilaterally. REFERENCES: SRU CRITERIA. The degree of internal carotid artery stenosis is based on criteria defined by the Society of Radiologists in Ultrasound (SRU). Normal is no stenosis. Mild is less than 50% stenosis. Moderate is 50-69% stenosis. Severe is greater than 69% stenosis to near occlusion. Near occlusion is a markedly narrowed lumen. Total occlusion is no detectable patent lumen.
[2024-12-30 06:22] LABS: Alanine Aminotransferase 28 U/L (0-41); Albumin Level 3.5 g/dL (3.5-5.2); Alkaline Phosphatase 117 U/L (40-130); Anion Gap 14.9 (5-19); Aspartate Amino Transferase 30 U/L (0-40); Blood Urea Nitrogen 11 mg/dL (8-23); Carbon Dioxide 22 mmol/L (22-29); Chloride 111 mmol/L (98-107); Chol HDL Ratio 2.22 mg/dL (1.0-5.00); Cholesterol 122 mg/dL (0-200); Creatinine Clr Calc Pharmacy 95.1823; Globulin 2.5 g/dL (1.3-4.6); Glucose 121 mg/dL (65-115); HDL Cholesterol 55 mg/dL (60-100); LDL Cholesterol Calculated 45 mg/dL (50-129); LDL HDL Ratio 0.82 RATIO (0.00-3.22); Osmolality Calculated 299 mOsm/kg (285-295); Potassium 3.9 mmol/L (3.5-5.1); Sodium 144 mmol/L (136-145); Total Bilirubin 0.4 mg/dL (0.15-1.2); Triglycerides 109 mg/dL (0-150)
[2024-12-30 06:28] LABS: Estmated Average Glucose 105; Hemoglobin A1C 5.3 % (4.0-6.0)
[2024-12-30] MEDS: aspirin 81 mg EC Tablet PO (09:14)
[2024-12-30] MEDS: thiamine 100 mg Tablet PO (09:14)
--- NOTE | 2024-12-30 09:58 | MR_ITS ---
WS: [id number] MRI HEAD WITHOUT CONTRAST TECHNIQUE: Sagittal T1, T2 axial, T2 axial FLAIR, axial and coronal T1 images, axial susceptibility weighted imaging, axial diffusion weighted images, and coronal T2 images were obtained. CLINICAL INFORMATION: stroke COMPARISON: CT 12/29/2024 FINDINGS: Some images degraded by motion No evidence of restricted diffusion to suggest acute ischemia. Ventricular system and basilar cisterns are patent. Moderate small vessel changes. Mild parenchymal volume loss. Mucosal thickening in the ethmoid air cells and LEFT mastoid tip. No hemosiderin on the susceptibility weighted images. Normal optic chiasm and pituitary infundibulum. MR/MR head wo con* [id number] IMPRESSION: 1. No evidence of restricted diffusion to suggest acute ischemia. 2. Moderate small vessel changes with mild parenchymal volume loss. 3. Mild mucosal thickening in the paranasal sinuses. Mucosal thickening LEFT m astoid tip. 4. No hemosiderin on the susceptibility weighted images. 5. Shallow central protrusion at C3-C4 in the upper cervical spine with mild c entral canal stenosis.
[2024-12-30 10:12] LABS: ABG PCO2 42.8 mmHg (35-45); ABG PH Result 7.39 (7.35-7.45); Arterial Blood Gas Hematocrit 40.7 % (42-52); Blood Gas Allen Test Pos; Blood Gas Operator Identificat glc; Blood Gas Sample Site Radial, left; Blood Gas Sample Type Arterial; HCO3 ABG 26.2 mmol/L (22-26); Oxygen Device ROOM AIR; PO2 ABG 70.3 mmHg (80.0-100.0); PO2 FiO2 Ratio Arterial Blood 334
--- NOTE | 2024-12-30 10:39 | PC.NURSE ---
accounts payable payroll coordinator rounds @ [phone]- gave patient and family stroke education book
--- NOTE | 2024-12-30 13:15 | P.PN_ITS ---
Subjective 2 Subjective: Continues to complain of persistent dizziness. States it is better than yesterday but still ongoing. Will obtain MRI to rule out posterior circulation stroke. Medications: Reviewed: Yes Vitals/I&O/Wt Last Vital Signs Temp 98.2 F 12/30/24 12:00 Pulse 56 L 12/30/24 12:00 Resp 14 12/30/24 12:00 BP 110/70 12/30/24 12:00 Pulse Ox 95 12/30/24 12:00 O2 Del Method Room Air 12/30/24 12:00 12/29/24 12/30/24 12/30/24 22:59 06:59 14:59 Intake Total 1000 / 1000 680 / 1680 360 / 360 Output Total 540 / 540 375 / 915 Balance 460 / 460 305 / 765 360 / 360 Weight last 48 hrs Weight 76.7 kg Weight 76.5 kg Weight 74.843 kg Physical Exam 2 Narrative: General: No acute distress, AO x3 HEENT: PERRLA, pupils bilaterally equal and reactive, pallors not present Chest: Normal vesicular breath sounds, no added sounds, equal good air entry bilaterally CVS: S1-S2 regular, no murmurs, no tachycardia, no gallops, no rubs Abdomen: Soft, nontender, no organomegaly, bowel sounds present Neuro: No focal deficits, no facial deformity, AO x3, power 5/5 in all limbs Data 12/30/24 05:17 12/30/24 05:17 Micro: Microbiology 12/29/24 13:05 Blood Culture - Preliminary Blood SPECIMEN COLLECTED 12/29/24 13:10 Blood Culture - Preliminary Blood SPECIMEN COLLECTED A&P Assessment and plan (1) Symptomatic bradycardia: (2) Syncope: Plan 64-year-old male without known cardiac comorbidities presenting to the hospital today with chief complaints of dizziness, possibly presyncope related to sinus bradycardia. EKG showing sinus bradycardia Patient needed to be administered atropine which brought his heart rate between 60-70. Per discussion patient was more alert and awake after his heart rate improved. Will monitor on telemetry overnight, admit to CSU. Alternate differential of neurogenic syncope. CT head without any acute stroke Check carotid Doppler and echocardiogram Troponin series today with baseline troponin at 7, unremarkable delta at 2 hours. Pending 6-hour trend Reports a history of daily alcohol drinking, add thiamine 100 mg p.o. daily. Monitor for signs of alcohol withdrawal. Currently alcohol level is less than 10 therefore less likely his symptoms are related to acute intoxication. Check TSH and ammonia levels. December 30, 2024 Pending carotid Doppler and echocardiogram. Continues to complain of persistent dizziness even when heart rate is at 65. Uncertain if bradycardia would be the only explanation of his ongoing symptoms. Will obtain MRI of the brain to rule out posterior circulation stroke. Alternate differential is that of Wernicke's given reported daily alcohol intake. Further course to be dependent on results of pending studies PDMP PDMP Reviewed: Not Reviewed Attestations 2 Medical Necessity Statement*: Persistent symptoms Coding Level of Care Code Acute Code for Chg Fwd Diagnoses Symptomatic bradycardia R00.1 Syncope R55
--- NOTE | 2024-12-30 18:44 | PC.NURSE ---
daughter told me down the hallways that pt is in pain they have been waiting for pain med for 6 hrs? Went to pt's room and pt was sleeping. When pt was asked if he has any pain, he said, No. Call light provided to pt.
[2024-12-30] MEDS: acetaminophen 325 mg Tablet 650 MG PO (22:54)
[2024-12-31 04:44] VITALS: BP 157/88; PULSE 49; RESP 13; O2SAT 93
[2024-12-31 08:00] VITALS: BP 162/75; PULSE 48; RESP 15; TEMP 36.7; O2SAT 96
[2024-12-31] MEDS: aspirin 81 mg EC Tablet PO (08:55)
[2024-12-31] MEDS: thiamine 100 mg Tablet PO (08:55)
--- NOTE | 2024-12-31 10:00 | PC.RESP ---
Pt discharging this am, has no needs, he states.
[2024-12-31 10:17] VITALS: BP 162/75; PULSE 48; RESP 17; TEMP 36.7; O2SAT 93
--- NOTE | 2024-12-31 14:08 | PM.DCS ---
Discharge Providers Date of Admission: 12/29/24 17:48 Date of Discharge: December 31, 2024 Attending Provider at Admission: Hayley Schwab MD Attending Provider at Discharge: Hayley Schwab MD Diagnoses at Discharge Discharge Diagnosis (1) Symptomatic bradycardia: Status: Acute (2) Syncope: Status: Acute (3) Dizziness: Status: Acute Reason for Visit Reason for Visit: AMS, Syncope Hospital Course Hospital Course 64 year old male without known medical comorbidities, history of daily alcohol use, use of THC Gummies, he was brought to the emergency room by his family due to complaints of feeling dizzy. Patient reports that he was in his usual state of health until this morning. He was at rest and suddenly started to feel dizzy as if being carsick . Did not lose consciousness at any time. No witnessed seziures. Upon ER arrival he was noted to be bradycardic with heart rate in the 40s. He received atropine following which heart rate improved between 60-70. He was more awake and alert after his heart rate was improved per ER physician. CT of the head was without any acute intracranial hemorrhage or edema. During the course of his admission here, he was noted to be maintaining his heart rate anywhere between 48 to 80 bpm. Similarly blood pressure was fluctuating between 95-1 50 systolic. His symptoms did not appear to correlate with either high or low blood pressure or low or normal heart rate during repeated of monitoring. For instance today his heart rate is 48 at the time of this assessment however he states that his dizziness is completely resolved. States he has no symptoms similar to when he presented on admission. MRI of the head was performed to rule out a posterior circulation stroke, study was negative for the same. He underwent carotid Doppler which did not show any critical stenosis. Echocardiogram did not reveal any systolic dysfunction, LVEF normal, mild LVH, tricuspid regurgitation of which patient is already aware. He has been fitted with an event monitor at the time of discharge to further monitoring for symptomatic bradycardia. Referral provided to cardiology clinic. Patient has also been set up with primary care physician for health maintenance. Since his blood pressure was fluctuating during the course of admission antihypertensives have not been added at this time. This may need further monitoring, defer to PCP regarding initiation of antihypertensives down the line if needed. This was discused with the patient. Physical Exam Narrative: General: No acute distress, AO x3 HEENT: PERRLA, pupils bilaterally equal and reactive, pallors not present Chest: Normal vesicular breath sounds, no added sounds, equal good air entry bilaterally CVS: S1-S2 regular, no murmurs, no tachycardia, no gallops, no rubs Abdomen: Soft, nontender, no organomegaly, bowel sounds present Neuro: No focal deficits, no facial deformity, AO x3, power 5/5 in all limbs Discharge Data Studies Completed and Pending Completed Studies During Hospitalization Category Date Time Status CT head wo con* [id number] Stat Cat Scan 12/29/24 12:49 Completed XR chest 1V portable [id number] Stat Exams 12/29/24 12:19 Completed MR head wo con* [id number] Routine MRI 12/30/24 09:58 Completed CV carotid duplex BI* [id number] Routine Ultrasound 12/30/24 06:00 Completed CV. echo complete* [id number] Routine Ultrasound 12/29/24 18:17 Completed Pending at discharge Category Date Time Status Blood Culture Stat Lab 12/29/24 13:05 Results Radiology Impressions Chest X-Ray 12/29/24 12:19 Impression: Atherosclerosis. Head CT 12/29/24 12:49 IMPRESSION: 1. No acute intracranial hemorrhage or edema. 2. Mild progression of small vessel ischemic changes since 08/09/2018. No large territory infarct. 3. Ethmoid air cell disease. Carotid Doppler Study 12/30/24 06:00 IMPRESSION: 1. No significant stenosis hemodynamically in the common carotid, internal carotid, or subclavian arteries bilaterally. 2. Atherosclerotic plaquing at the carotid bulbs bilaterally. REFERENCES: SRU CRITERIA. The degree of internal carotid artery stenosis is based on criteria defined by the Society of Radiologists in Ultrasound (SRU). Normal is no stenosis. Mild is less than 50% stenosis. Moderate is 50-69% stenosis. Severe is greater than 69% stenosis to near occlusion. Near occlusion is a markedly narrowed lumen. Total occlusion is no detectable patent lumen. Head MRI 12/30/24 09:58 IMPRESSION: 1. No evidence of restricted diffusion to suggest acute ischemia. 2. Moderate small vessel changes with mild parenchymal volume loss. 3. Mild mucosal thickening in the paranasal sinuses. Mucosal thickening LEFT mastoid tip. 4. No hemosiderin on the susceptibility weighted images. 5. Shallow central protrusion at C3-C4 in the upper cervical spine with mild central canal stenosis. Laboratory Results WBC 5.14 10^3/uL (3.29-11.43) 12/30/24 05:17 RBC 4.09 10^6/uL (3.85-5.65) 12/30/24 05:17 Hgb 12.50 g/dL (11.27-16.99) 12/30/24 05:17 Hct 37.8 % (37-53) 12/30/24 05:17 MCV 92.4 fl (82-101) 12/30/24 05:17 MCH 30.6 pg (27-33) 12/30/24 05:17 MCHC 33.1 g/dL (30-55) 12/30/24 05:17 RDW 13.8 % (12.1-15.1) 12/30/24 05:17 Plt Count 122 10^3/cmm (157-399) L 12/30/24 05:17 MPV 12.7 fL (7.4-10.4) H 12/30/24 05:17 Neut % (Auto) 50.8 % 12/30/24 05:17 Lymph % (Auto) 35.6 % 12/30/24 05:17 [place] % (Auto) 6.2 % 12/30/24 05:17 Eos % (Auto) 6.2 % 12/30/24 05:17 Baso % (Auto) 1.0 % 12/30/24 05:17 Neut # (Auto) 2.61 10^3/uL (1.8-7.7) 12/30/24 05:17 Lymph # (Auto) 1.8 10^3/uL (0.8-4.8) 12/30/24 05:17 [place] # (Auto) 0.3 10^3/uL (0.2-0.9) 12/30/24 05:17 Eos # (Auto) 0.3 10^3/uL (0.0-0.8) 12/30/24 05:17 Baso # (Auto) 0.1 10^3/uL (0.0-0.1) 12/30/24 05:17 Nucleated RBC % (auto) 0 % 12/30/24 05:17 Nucleated RBCs # 0.0 /100WBC 12/30/24 05:17 D-Dimer 0.29 ug/mLFEU (0-0.59) 12/29/24 19:19 Specimen Type Arterial 12/30/24 10:00 Sample Site Radial, left 12/30/24 10:00 ABG pH 7.39 (7.35-7.45) 12/30/24 10:00 ABG pCO2 42.8 mmHg (35-45) 12/30/24 10:00 ABG pO2 70.3 mmHg (80.0-100.0) L 12/30/24 10:00 ABG PO2/FiO2 Ratio 334 12/30/24 10:00 ABG HCO3 26.2 mmol/L (22-26) H 12/30/24 10:00 ABG Base Excess 1.0 mmol/L (-2.0-2.0) 12/30/24 10:00 Ralph Test Pos 12/30/24 10:00 Hematocrit 40.7 % (42-52) L 12/30/24 10:00 O2 Delivery Device Room air 12/30/24 10:00 FiO2 21.0 % 12/30/24 10:00 Medical Management Trainer ID glc 12/30/24 10:00 Sodium 144 mmol/L (136-145) 12/30/24 05:17 Potassium 3.9 mmol/L (3.5-5.1) 12/30/24 05:17 Chloride 111 mmol/L (98-107) H 12/30/24 05:17 Carbon Dioxide 22 mmol/L (22-29) 12/30/24 05:17 Anion Gap 14.9 (5-19) 12/30/24 05:17 BUN 11 mg/dL (8-23) 12/30/24 05:17 Creatinine 0.8 mg/dL (0.7-1.2) 12/30/24 05:17 GFR Calculation 97.0 mL/min (90-130) 12/30/24 05:17 Glucose 121 mg/dL (65-115) H 12/30/24 05:17 Estimat Average Glucose 105 12/30/24 05:17 Hemoglobin A1c 5.3 % (4.0-6.0) 12/30/24 05:17 Calculated Osmolality 299 mOsm/kg (285-295) H 12/30/24 05:17 Lactic Acid 1.4 mmol/L (0.5-2.2) 12/29/24 13:10 Calcium 9.0 mg/dL (8.5-10.5) 12/30/24 05:17 Total Bilirubin 0.4 mg/dL (0.15-1.2) 12/30/24 05:17 AST 30 U/L (0-40) 12/30/24 05:17 ALT 28 U/L (0-41) 12/30/24 05:17 Alkaline Phosphatase 117 U/L (40-130) 12/30/24 05:17 Ammonia 24 umol/L (16-60) 12/29/24 19:19 Troponin T Baseline 7 ng/L (0-15) 12/29/24 13:10 Troponin T 120 Minute 6.28 ng/L (0-15) 12/29/24 15:05 Delta Troponin T -0.72 ABS# (0-10) L 12/29/24 15:05 Troponin T Hi Sens 6Hr 6.21 ng/L (0-15) 12/29/24 19:19 Troponin T Hi Sens 6Hr Delta -0.79 ng/L (0-12) L 12/29/24 19:19 C-Reactive Protein 3.0 mg/L (0.0-4.9) 12/29/24 13:10 NT-Pro-B Natriuret Pep 50 pg/mL (0-125) 12/29/24 13:10 Total Protein 6.0 g/dL (6.6-8.7) L 12/30/24 05:17 Albumin 3.5 g/dL (3.5-5.2) 12/30/24 05:17 Globulin 2.5 g/dL (1.3-4.6) 12/30/24 05:17 Triglycerides 109 mg/dL (0-150) 12/30/24 05:17 Cholesterol 122 mg/dL (0-200) 12/30/24 05:17 LDL Cholesterol, Calc 45 mg/dL (50-129) L 12/30/24 05:17 HDL Cholesterol 55 mg/dL (60-100) L 12/30/24 05:17 LDL/HDL Ratio 0.82 RATIO (0.00-3.22) 12/30/24 05:17 Cholesterol/HDL Ratio 2.22 mg/dL (1.0-5.00) 12/30/24 05:17 TSH 0.22 uIU/mL (0.27-4.20) L 12/29/24 15:05 Urine Color Yellow (Yellow) 12/29/24 19:53 Urine Appearance Clear (CLEAR) 12/29/24 19:53 Urine pH 6 (5-7) 12/29/24 19:53 Ur Specific [place] 1.024 (1.005-1.030) 12/29/24 19:53 Urine Protein Neg (Negative) 12/29/24 19:53 Urine Glucose (UA) Norm (Normal) 12/29/24 19:53 Urine Ketones Negative (Negative) 12/29/24 19:53 Urine Blood Neg (Negative) 12/29/24 19:53 Urine Nitrate Negative (Negative) 12/29/24 19:53 Urine Bilirubin Neg (Negative) 12/29/24 19:53 Urine Urobilinogen 2.0 mg/dL (Negative) H 12/29/24 19:53 Ur Leukocyte Esterase Negative (Negative) 12/29/24 19:53 Urine RBC 0-4 /hpf (0-2) H 12/29/24 19:53 Urine WBC 0-4 /hpf (0-5) H 12/29/24 19:53 Ur Squamous Epith Cells 0-4 /hpf (0-5) H 12/29/24 19:53 Amorphous Sediment Not Reportable 12/29/24 19:53 Urine Bacteria None /hpf (NONE) 12/29/24 19:53 Hyaline Casts 1.65 /lpf 12/29/24 19:53 Urine Mucus None /hpf 12/29/24 19:53 Urine Opiates Screen Negative ng/mL (Negative) 12/29/24 19:53 Acetaminophen < 5.0 ug/mL (10-30) L 12/29/24 13:10 Ur Barbiturates Screen Negative ng/mL (Negative) 12/29/24 19:53 Ur Phencyclidine Scrn Negative ng/mL (Negative) 12/29/24 19:53 Ur Amphetamines Screen Negative ng/mL (Negative) 12/29/24 19:53 U Benzodiazepines Scrn Negative ng/mL (Negative) 12/29/24 19:53 Urine Cocaine Screen Negative ng/mL (Negative) 12/29/24 19:53 U Marijuana (THC) Screen Positive ng/mL (Negative) H 12/29/24 19:53 Ethyl Alcohol < 10 mg/dL (0-10) 12/29/24 13:10 Influenza A (PCR) Negative (Negative) 12/29/24 13:00 Influenza Type B (PCR) Negative (Negative) 12/29/24 13:00 RSV (PCR) Negative (Negative) 12/29/24 13:00 SARS-CoV-2 (PCR) Negative (Negative) 12/29/24 13:00 Vitals Last Vital Signs Temp 98.1 F 12/31/24 10:17 Pulse 48 L 12/31/24 10:17 Resp 17 12/31/24 10:17 BP 162/75 12/31/24 10:17 Pulse Ox 93 12/31/24 10:17 O2 Del Method Room Air 12/31/24 10:00 Discharge Plan Discharge Patient Disposition: Home Condition: Stable Prescriptions: No Action ibuprofen [Advil] 200 mg Tablet 200 mg PO Q6H PRN (Reason: Pain) albuterol sulfate 90 mcg/actuation HFA aerosol inhaler 2 inh INHALATION Q4H PRN (Reason: shortness of breath or wheezing) Qty: 18 0RF Discharge Orders: Discharge Order (Routine); Ordered 12/31/24 Ordered By: Hayley Schwab Referrals: Andreina Kearney FNP [Referring] - 01/05/25 2:00 pm Navya Neff FNP [Nurse Practitioner] - 01/11/25 1:00 pm Discharge Diet: Usual diet Discharge Activity: Resume usual activity Patient Instructions: Alcohol Abuse, Alcohol Intoxication, Alcoholism, Alcohol Withdrawal, Bradycardia, Syncope, Opioid Safety Discharge Attestations Time Spent in Discharge Care*: greater than 30 min Quality Metrics Clinical Quality Measures [ No reported AMI, CVA or VTE this stay] Coding Level of Care Code Acute Code for Chg Fwd Diagnoses Symptomatic bradycardia R00.1 Syncope R55 Dizziness R42
== END 2024-12-31 10:35 | disposition home or self-care (01) ==
LOC: ER 15:45 → CSU 12-30 00:15 → ER IP 12-30 07:29
PROVIDERS: Admitting Provider Student in an Organized Health Care Education/Training Program; Emergency Provider Emergency Medicine; Visit Provider Student in an Organized Health Care Education/Training Program
DX: R00.1 Bradycardia, unspecified (principal); I10 Essential (primary) hypertension; R55 Syncope and collapse; R42 Dizziness and giddiness; F10.10 Alcohol abuse, uncomplicated; F12.90 Cannabis use, unspecified, uncomplicated
CPT/HCPCS: 36415; 36600; 70450; 70551; 71045; 80053; 80061; 80306; 80307; 81001; 82140; 82803; 83036; 83605; 83880; 84443; 84484; 85025; 85378; 86140; 87040; 87637; 92523; 93005; 93306; 93880; 96374; 97161; 97165; 99285; A9270; G0378; J0461; J7030; J9999

== ENCOUNTER 2025-02-23 06:47 | Emergency (ER) | payer MEDICARE, SELFPAY ==
--- NOTE | 2025-02-23 06:49 | XRR_ITS ---
PROCEDURE INFORMATION: Exam: XR Left Knee Exam date and time: 02/23/2025 7:02 AM Age: 64 years old Clinical indication: Pain; Knee; Left TECHNIQUE: Imaging protocol: Radiologic exam of the left knee. Views: 3 views. COMPARISON: No relevant prior studies available. FINDINGS: Bones/joints: There is no fracture or joint dislocation. Bony alignment is preserved. Soft tissues: Normal. XR/XR knee LT 3V* [id number] IMPRESSION: No acute findings.
[2025-02-23 06:57] VITALS: BP 180/87; PULSE 58; RESP 16; TEMP 36.4; O2SAT 97
--- NOTE | 2025-02-23 07:15 | W.ED.EXTPRO ---
HPI - Extremity Problem General: Chief complaint: Extremity Injury, Lower Stated complaint: L knee pain Time Seen by Provider: 02/23/25 06:49 History of Present Illness: Patient is a 64 year old male who presents to the ED with chief complaint of L knee pain. He states yesterday he stood up and heard 'cracking' of his knee and then had pain. Was able to ambulate immediately after and had no swelling or bruising present. Denies any mechanism of injury to the knee, no twisting, turning, or hitting the knee on something. Put a knee brace on which had helped relieve some of the pain. Tried ibuprofen, heat, and ice with no relief. Today states the pain is mild and predominantly on the medial aspect of the L knee, describing the pain as burning. Denies any tingling, numbness, or color changes to extremity. Has a history of an ACL tear and repair 20 years ago. Does a lot of manual labor for work. Related Data Home Medications ?Medication ?Instructions ?Recorded ?Confirmed ibuprofen 200 mg tablet (Advil) 200 mg PO Q6H PRN Pain 08/26/24 12/29/24 Previous Rx's ?Medication ?Instructions ?Recorded albuterol sulfate 90 mcg/actuation 2 inh inhalation Q4H PRN shortness 08/26/24 aerosol inhaler of breath or wheezing #18 grams diclofenac sodium 75 mg 75 mg PO Q12H PRN pain #20 tabs 02/23/25 tablet,delayed release Allergies Allergy/AdvReac Type Severity Reaction Status Date / Time codeine Allergy ALGY-Hives Verified 12/29/24 18:38 Review of Systems Musc: Reports: joint pain; Denies: joint swelling Physical Exam Const: COMMON NORMALS: no acute distress GENERAL APPEARANCE: cooperative and comfortable ORIENTATION/CONSCIOUSNESS: Yes awake, Yes oriented to person, Yes oriented to place and Yes oriented to time HENMT: COMMON NORMALS: normocephalic, atraumatic and hearing grossly normal bilaterally HEAD & SCALP: normocephalic and atraumatic Resp: COMMON NORMALS: normal respiratory effort and No retractions Extremity: OTHER: Examination left knee some hypertrophic arthritic changes no joint effusion. No ligamentous instability or laxity with varus valgus deformity. No abrasion no laceration no redness or erythema Neuro: SENSORIUM/ORIENTATION: Yes oriented to person, Yes oriented to place and Yes oriented to time Skin: COMMON NORMALS: no rashes or lesions noted GENERAL SKIN EXAM: no rashes or lesions noted Course Vital Signs: Vital signs: Vital Signs Temperature 97.6 F 02/23/25 06:57 Pulse Rate 58 L 02/23/25 06:57 Respiratory Rate 16 02/23/25 06:57 Blood Pressure 180/87 02/23/25 06:57 Pulse Oximetry 97 02/23/25 06:57 Oxygen Delivery Me thod Room Air 02/23/25 06:57 MDM - Extremity (Nontraumatic) Medical Decision Making Prescribed diclofenac to use and lieu of ibuprofen. 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 He has no evidence of ligamentous instability or laxity on exam trial of the diclofenac if not improving follow-up with primary care can refer to Ortho if appropriate Lab Data Radiology Impressions Knee X-Ray 02/23/25 06:49 IMPRESSION: No acute findings. All radiology interpretation(s) finalized by discharge Discharge Plan Discharge Patient Disposition: Home Clinical Impression: Osteoarthritis of left knee Condition: Stable Prescriptions: New diclofenac sodium 75 mg tablet,delayed release (DR/EC) 75 mg PO Q12H PRN (Reason: pain) Qty: 20 0RF No Action ibuprofen [Advil] 200 mg Tablet 200 mg PO Q6H PRN (Reason: Pain) albuterol sulfate 90 mcg/actuation HFA aerosol inhaler 2 inh INHALATION Q4H PRN (Reason: shortness of breath or wheezing) Qty: 18 0RF Discharge Orders: Discharge ED (Routine); Ordered 02/23/25 Ordered By: Klaus Romero Discharge Diet: Usual diet Discharge Activity: Increase activity as tolerated Patient Instructions: Opioid Safety, Pain Management Activity Restrictions/Additional Instructions: Thank you for choosing [facility] for your healthcare needs today. It is very important that you follow up as instructed or that you return to the Emergency Department should you have concerns or if your condition changes or worsens in any way. You are seen emergency room for knee pain. X-ray shows arthritic changes but no acute fracture. Will start on anti-inflammatory recommend you follow-up with your primary care doctor if symptoms persist you may need referral to orthopedics. Print Language: Urdu Coding Level of Care Code ED Branch Service Leader for Kalen Martin
== END 2025-02-23 07:25 | disposition home or self-care (01) ==
PROVIDERS: Emergency Provider Family Medicine
DX: M17.12 Unilateral primary osteoarthritis, left knee (principal)
CPT/HCPCS: 73562; 99283

== ENCOUNTER 2025-05-25 17:59 | Emergency (ER) | payer MEDICARE, SELFPAY ==
[2025-05-25 18:04] VITALS: BP 117/84; PULSE 98; RESP 16; TEMP 36.6; O2SAT 97
--- OUTSIDE RECORDS SUMMARY | 2025-05-25 18:06 | XMS_ITS | Clinical Summary ---
Author Organization [facility] Address [address] [facility] Attn: Epic Prelude ADT KAMI HERNANDEZ [address] Care Team Providers Care Nailing Machine Operator Automatic Name Role Phone Katelin Panchal MD Primary Care Provider [phone] Allergies Active Allergy Reactions Criticality Noted Date Comments Aspirin Hives High 09/01/2014 Codeine Hives High 09/01/2014 Medications meclizine (ANTIVERT) 25 mg tablet Take 1 Tablet (25 mg) by mouth 3 times daily as needed for Dizziness Please dispense from [facility]. 4 Tablet None 8 Active meclizine (ANTIVERT) 25 mg tablet Take 1 Tablet (25 mg) by mouth 3 times daily as needed for Dizziness. 30 Tablet 0 8 Active neomycin-polymy mamta-hydrocortis one (CORTISPORIN) 3.5-10,000-1 mg/mL-unit/mL-% otic solution Administer 3 Drops in right ear 4 times daily Please dispense from [employer]. 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 Gender Identity Not on file Sexual Orientation Not on file Last Filed Vital Signs Vital Sign Reading Time Taken Comments Blood Pressure 102/58 12/30/2017 10:21 PM CDT Pulse 65 12/30/2017 9:15 PM CDT Temperature 36.7 C (98.1 F) 12/30/2017 10:21 PM CDT Respiratory Rate 16 12/30/2017 10:21 PM CDT Oxygen Saturation - - Inhaled Oxygen Concentration - - Weight 78.9 kg (174 lb) 12/30/2017 8:14 PM CDT Height 179.1 cm (5' 10.5 ) 12/30/2017 8:14 PM CD T Body Mass Index 24.61 12/30/2017 8:14 PM CDT Plan of Treatment Health Maintenance Due Date Last Done Comments DTAP/TDAP/TD VACCINES (1 - Tdap) 1978 COLORECTAL SCREENING 2004 Colorectal Cancer Screening 2004 FIT-DNA Q 3 years 2004 FIT/FOBT Q 1 year 2004 Flex Sig/CT Colonography Q 5 years 2004 PNEUMOCOCCAL VACCINE 50+ YEARS (1 of 1 - PCV) 03/28/20 09 ZOSTER VACCINE (1 of 2) 2009 INFLUENZA VACCINE (#1) 2025 RSV VACCINE (60+ or ) (1 - 1-dose 75+ series) 2034 Care Teams Nailing Machine Operator Automatic Relationship Specialty Start Date End Date Katelin Panchal MD [address] [place] [address] PCP - General Neurosurgery 09/01/14
--- OUTSIDE RECORDS SUMMARY | 2025-05-25 18:06 | XMS_ITS | Encounter Summary ---
Author Organization 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
--- OUTSIDE RECORDS SUMMARY | 2025-05-25 18:06 | XMS_ITS | Encounter Summary ---
Author Organization [facility] Address [address] [place] [address] Care Team Providers Care Water Control Station Engineer Name Role Phone Katelin Panchal MD Primary Care Provider [phone] Encounter Details Date Type Department Care Team (Latest Contact Info) Description 08/23/1998 Outpatient Historical [facility] Derek Rm MD NO ADDRESS ON FILE Sprain cruciate lig knee (Primary Dx); Follow-up examination following surgery Social History Tobacco Use Types Packs/Day Years Used Date Smoking Tobacco: Never Assessed Sex and Gender Information Value Date Recorded Sex Assigned at Not on file Legal Sex Male 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
--- OUTSIDE RECORDS SUMMARY | 2025-05-25 18:06 | XMS_ITS | Encounter Summary ---
Author Organization [facility] Address [address] 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
--- OUTSIDE RECORDS SUMMARY | 2025-05-25 18:06 | XMS_ITS | Encounter Summary ---
Author Organization [facility] Address [address] [facility] [address] Care Team Providers Care Senior Business Architect Name Role Phone Katelin Panchal MD Primary Care Provider [phone] [phone] Encounter Details Date Type Department Care Team (Latest Contact Info) Description 06/17/2000 Outpatient Historical [facility] Joss Keys, DO [address] [place] [address] Headache(784.0) (Primary Dx); Cervicalgia Social History Tobacco Use Types Packs/Day Years Used Date Smoking Tobacco: Never Assessed Sex and Gender Information Value Date Recorded Sex Assigned at Not on file Legal Sex Male 3:36 AM CORPORATE COMPLIANCE MANAGER Gender Identity Not on file Sexual Orientation Not on file documented as of this encounter Plan of Treatment Not on file documented as of this encounter Visit Diagnoses Diagnosis Headache(784.0)- Primary Headache Cervicalgia documented in this encounter Care Teams Senior Business Architect Relationship Specialty Start Date End Date Katelin Panchal MD PCP - General Neurosurgery 09/01/14 documented as of this encounter
--- OUTSIDE RECORDS SUMMARY | 2025-05-25 18:06 | XMS_ITS | Encounter Summary ---
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
--- OUTSIDE RECORDS SUMMARY | 2025-05-25 18:06 | XMS_ITS | Encounter Summary ---
Author Organization [facility] Address [address] [facility] [place] [address] Care Team Providers Care Computer Clerk Name Role Phone Katelin Panchal MD Primary Care Provider [phone] Encounter Details Date Type Department Care Team (Latest Contact Info) Description 11/13/1999 Outpatient Historical [facility] Satya Rodriguez NO ADDRESS ON FILE Chest pain, unspecified (Primary Dx); Chronic airway obstruction, not elsewhere classified (CMS/HCC) Social History Tobacco Use Types Packs/Day Years Used Date Smoking Tobacco: Never Assessed Sex and Gender Information Value Date Recorded Sex Assigned at Not on file 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
--- OUTSIDE RECORDS SUMMARY | 2025-05-25 18:06 | XMS_ITS | Encounter Summary ---
Author Organization [facility] Address [address] [place] [address] Care Team Providers Care Media Theorist And Author Of Name Role Phone Katelin Panchal MD Primary Care Provider [phone] Encounter Details Date Type Department Care Team (Latest Contact Info) Description 06/14/1998 Outpatient Historical [facility] Derek Rm MD NO ADDRESS ON FILE Sprain cruciate lig knee (Primary Dx); Follow-up examination following surgery Social History Tobacco Use Types Packs/Day Years Used Date Smoking Tobacco: Never Assessed Sex and Gender Information Value Date Recorded Sex Assigned at Not on file 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
--- OUTSIDE RECORDS SUMMARY | 2025-05-25 18:06 | XMS_ITS | Encounter Summary ---
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
--- OUTSIDE RECORDS SUMMARY | 2025-05-25 18:06 | XMS_ITS | Clinical Summary ---
Author Organization [facility] Address [address] [place] [address] Care Team Providers Care Employee Representative Name Role Phone Katelin Panchal MD Primary Care Provider [phone] Allergies Active Allergy Reactions Criticality Noted Date Comments Aspirin Hives High 09/01/2014 Codeine Hives High 09/01/2014 Medications nitroglycerin (NITROSTAT) 0.4 mg Tablet, Sublingual Place 0.4 mg under tongue every 5 minutes as needed for Chest Pain. Active neomycin-polymy mamta-hydrocortis one (CORTISPORIN) 3.5-10,000-1 mg/mL-unit/mL-% otic solution Administer 3 Drops in right ear 4 times daily Please dispense from [employer]. 10 mL 8 Active meclizine (ANTIVERT) 25 mg tablet Take 1 Tablet (25 mg) by mouth 3 times daily as needed for Dizziness Please dispense from [employer]. 4 Tablet None 8 Active meclizine (ANTIVERT) 25 mg tablet Take 1 Tablet (25 mg) by mouth 3 times daily as needed for Dizziness. 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 Gender Identity Not on file Sexual Orientation Not on file Last Filed Vital Signs Vital Sign Reading Time Taken Comments Blood Pressure 102/58 12/30/2017 10:21 PM CDT Pulse 65 12/30/2017 9:15 PM CDT Temperature 36.7 C (98.1 F) 12/30/2017 10:21 PM CDT Respiratory Rate 16 12/30/2017 10:21 PM CDT Oxygen Saturation 97% 12/30/2017 10:21 PM CDT Inhaled Oxygen Concentration - - Weight 78.9 kg (174 lb) 12/30/2017 8:14 PM CDT Height 179.1 cm (5' 10.5 ) 12/30/2017 8:14 PM CD T Body Mass Index 24.61 12/30/2017 8:14 PM CDT Plan of Treatment Health Maintenance Due Date Last Done Comments DTAP/TDAP/TD VACCINES (1 - Tdap) 1978 PNEUMOCOCCAL VACCINE 50+ YEARS (1 of 2 - PCV) 03/28/19 78 COLORECTAL SCREENING 2004 Colorectal Cancer Screening 2004 FIT-DNA Q 3 years 2004 FIT/FOBT Q 1 year 2004 Flex Sig/CT Colonography Q 5 years 2004 ZOSTER VACCINE (1 of 2) 2009 INFLUENZA VACCINE (#1) 2025 RSV VACCINE (60+ or ) (1 - 1-dose 75+ series) [address] [place] [address] MEDICARE PART A HOSPITAL ONLY Care Teams Employee Representative Relationship Specialty Start Date End Date Katelin Panchal MD PCP - General Neurosurgery 09/01/14
--- NOTE | 2025-05-25 18:31 | ED_ITS ---
HPI - Extremity Problem General: Chief complaint: Extremity Injury, Lower Stated complaint: torn left acl Time Seen by Provider: 05/25/25 18:02 History of Present Illness: 65-year-old man presents emergency room with knee pain for last 3 months. He said he had an ACL replaced over 20 years ago and then about 3 months ago was timbo and stood up and felt a pop and has been having pain since. He has had injections in his knee. That helped up until the day. He said the pain was just so bad he could not even make it till his appointment tomorrow with his primary care provider. Related Data Home Medications ?Medication ?Instructions ?Recorded ?Confirmed ibuprofen 200 mg tablet (Advil) 200 mg PO Q6H PRN Pain 08/26/24 05/24/25 Previous Rx's ?Medication ?Instructions ?Recorded albuterol sulfate 90 mcg/actuation 2 inh inhalation Q4 H PRN shortness 08/26/24 aerosol inhaler of breath or wheezing #18 gr ams diclofenac sodium 75 mg 75 mg PO Q12H PRN pain #20 t abs 02/23/25 tablet,delayed release hydrocodone 5 mg-acetaminophen 325 1 tab PO Q6H PRN pa in #20 tabs 05/25/25 mg tablet polyethylene glycol 3350 17 17 g PO DAILY #510 grams 0 05/25/25 gram/dose oral powder (Miralax) Allergies Allergy/AdvReac Type Severity Reaction Status Date / Time codeine Allergy ALGY-Hives Verified 05/25/25 18:07 Review of Systems Narrative: Constitutional symptoms: Negative except as documented in HPI. Skin symptoms: Negative except as documented in HPI. Eye symptoms: Negative except as documented in HPI. ENMT symptoms: Negative except as documented in HPI. Respiratory symptoms: Negative except as documented in HPI. Cardiovascular symptoms: Negative except as documented in HPI. Gastrointestinal symptoms: Negative except as documented in HPI. Genitourinary symptoms: Negative except as documented in HPI. Musculoskeletal symptoms: Negative except as documented in HPI. Neurologic symptoms: Negative except as documented in HPI. Psychiatric symptoms: Negative except as documented in HPI. Endocrine symptoms: Negative except as documented in HPI. PFSH ED PFSH: Social History Smoking and tobacco/nicotine status: never used tobacco/nicotine Physical Exam Narrative: EXAM NARRATIVE: General: Alert, no acute distress. Skin: warm and dry Head: Normocephalic Neck: Trachea midline Eye: Extraocular movements are intact. Ears, nose, mouth and throat: Oral mucosa moist Respiratory: Respirations are non-labored Musculoskeletal: No obvious deformity or swelling. Pain limited range of motion Gastrointestinal: Abdomen does not appear distended Neurological: Alert and oriented, No focal neurological deficit observed. Psychiatric: Cooperative, appropriate mood & affect. Course Vital Signs: Vital signs: Vital Signs Temperature 97.8 F 05/25/25 18:04 Pulse Rate 92 05/25/25 18:33 Respiratory Rate 16 05/25/25 18:04 Blood Pressure 121/74 05/25/25 18:33 Pulse Oximetry 99 05/25/25 18:33 Oxygen Delivery Me thod Room Air 05/25/25 18:33 MDM - Extremity (Nontraumatic) Medical Decision Making Assessment and plan: Knee pain ?[place] in the emergency room. - Discharged home - Discussed plan with patient. Answered any questions. - Evaluation and treatment of this problem were appropriate in the emergency setting. No radiology studies performed this visit Discharge Plan Discharge Patient Disposition: Home Clinical Impression: Internal derangement of knee Condition: Stable Prescriptions: New hydrocodone-acetaminophen 5-325 mg tablet 1 tab PO Q6H PRN (Reason: pain) Qty: 20 0RF polyethylene glycol 3350 [Miralax] 17 gram/dose powder 17 g PO DAILY Qty: 510 0RF Rx Instructions: Take 1 scoop daily while taking pain medications. No Action ibuprofen [Advil] 200 mg Tablet 200 mg PO Q6H PRN (Reason: Pain) albuterol sulfate 90 mcg/actuation HFA aerosol inhaler 2 inh INHALATION Q4H PRN (Reason: shortness of breath or wheezing) Qty: 18 0RF diclofenac sodium 75 mg tablet,delayed release (DR/EC) 75 mg PO Q12H PRN (Reason: pain) Qty: 20 0RF Discharge Orders: Discharge ED (Routine); Ordered 05/25/25 Ordered By: Ayana Maxwell Discharge Diet: Usual diet Discharge Activity: Increase activity as tolerated Patient Instructions: Opioid Safety, Pain Management, Patient Portal & Michael Instructions Activity Restrictions/Additional Instructions: Keep follow-up appointment with your primary care doctor tomorrow. Thank you [facility] choosing [facility] healthcare needs today. You have been screened and evaluated and felt safe for discharge. Health conditions do change or evolve sometimes and as such it is important that you follow up with your Primary Doctor to be re checked, 3-5 days is a general good time frame for follow up. You are always welcome to return to the ED for re assessment if your symptoms are worsening or you have new concerns Print Language: Mohawk Coding Level of Care Code ED Patient Care Technician Instructor for Kalen Martin
[2025-05-25 18:33] VITALS: BP 121/74; PULSE 92; O2SAT 99
== END 2025-05-25 18:43 | disposition home or self-care (01) ==
PROVIDERS: Emergency Provider Emergency Medicine
DX: M23.8X2 Other internal derangements of left knee (principal)
CPT/HCPCS: 99283

== ENCOUNTER 2025-05-26 16:15 | Outpatient (CLI) | payer MEDICARE, SELFPAY ==
--- NOTE | 2025-05-26 16:25 | XRR_ITS ---
PROCEDURE INFORMATION: Exam: XR Left Knee Exam date and time: 05/26/2025 4:33 PM Age: 65 years old Clinical indication: Left; Prior surgery; Surgery date: 6+ months; Surgery type: Acl reconstruction; X3 months ago stood up and heard pop, pain medial knee, pain while bending or twisting; Additional info: Left knee pain TECHNIQUE: Imaging protocol: Radiologic exam of the left knee. Views: 4 or more views. COMPARISON: CR XR knee LT 3V* [id number] 02/23/2025 7:02 AM FINDINGS: Bones/joints: No fracture or malalignment. Joint space thickness is within normal limits. Soft tissues: Mild increased soft tissue density projects in the suprapatellar region, likely reflecting effusion. Mild degree of soft tissue swelling overlying the patellar tendon. Other findings: Small, nonspecific calcifications project over the lateral compartment joint space on AP view, difficult to identify on other views. XR/XR knee LT 4V [id number] IMPRESSION: 1. No acute fracture or dislocation. 2. Probable knee effusion. 3. Mild anterior subcutaneous soft tissue swelling.
== END 2025-05-26 16:16 | disposition home or self-care (01) ==
PROVIDERS: PCP Emergency Medicine; Visit Provider Nurse Practitioner Family
DX: M25.562 Pain in left knee (principal)
CPT/HCPCS: 73564